=== PATIENT | male | born 1970 | race American Indian/Alaskan Native ===

== ENCOUNTER 2016-08-31 19:19 | Emergency (ER) | payer OTHER ==
[2016-08-31 19:24] VITALS: BMI 34.8
[2016-08-31] MEDS ORDERED: Sodium Chloride 0.9% 1,000 ML IV STA (19:43)
[2016-08-31] MEDS ORDERED: Piperacill/Tazo 4.5gm in NS 4.5 GM/100 ML BAG IVPB STA (19:43)
--- NOTE | 2016-08-31 19:45 | ED PDOC ---
Arrival/HPI - General Chief Complaint: Fever Time Seen by Provider: 08/31/16 19:41 - History of Present Illness Narrative History of Present Illness (Text): 46 y/o M c PMHx HTN, HLD, DM p/w toothache and fever since last night. Patient states he began having pain of the upper, R lateral incisor last night and also noticed subjective fever. Pain is sharp, constant, moderate in severity, nonradiating. Denies cough, sore throat, neck stiffness, chest pain, cough, dyspnea, abdominal pain, vomiting, diarrhea, dysuria, rash. Past Medical History - Infectious Disease Hx of Infectious Diseases: None - Cardiac Hx Cardiac Disorders: Yes Hx Hypertension: Yes - Pulmonary Hx Respiratory Disorders: No - Neurological Hx Neurological Disorder: No - HEENT Hx HEENT Disorder: No - Renal Hx Renal Disorder: No - Endocrine/Metabolic Hx Endocrine Disorders: Yes Hx Diabetes Mellitus Type 2: Yes - Hematological/Oncological Hx Blood Disorders: No - Integumentary Hx Dermatological Disorder: No - Musculoskeletal/Rheumatological Hx Musculoskeletal Disorders: No - Gastrointestinal Hx Gastrointestinal Disorders: No - Genitourinary/Gynecological Hx Genitourinary Disorders: No - Psychiatric Hx Psychophysiologic Disorder: No Hx Substance Use: No - Anesthesia Hx Anesthesia: No Family/Social History Family/Social History: No Known Family HX Smoking Status: Never Smoked Hx Alcohol Use: No Hx Substance Use: No Allergies/Home Meds Allergies/Adverse Reactions: Allergies No Known Allergies Allergy (Verified 08/31/16 19:23) Home Medications: Home Meds Medication Instructions Recorded Confirmed Aspirin [Adult Low Dose Aspirin EC] 1 tab PO DAILY 08/31/16 08/31/16 Atorvastatin [Lipitor] 1 tab PO HS 08/31/16 08/31/16 Ergocalciferol (Vitamin D2) 1 tab PO QWK 08/31/16 08/31/16 [Vitamin D] Folic Acid/Multivit-Min/Lutein 1 tab PO DAILY 08/31/16 08/31/16 [Adult Multivitamin Gummies] Hydrochlorothiazide [Microzide] 1 tab PO DAILY 08/31/16 08/31/16 Lisinopril [Zestril] 1 tab PO DAILY 08/31/16 08/31/16 MetFORMIN [glucoPHAGE] 1 tab PO DAILY 08/31/16 08/31/16 Review of Systems - Physician Review All systems were reviewed & negative as marked: Yes - Review of Systems Constitutional: Fevers Respiratory: absent: SOB Cardiovascular: absent: Chest Pain Physical Exam - Physical Exam Narrative Physical Exam (Text): Constitutional: No acute distress. Head: Normocephalic. Atraumatic. Eyes: PERRL. ENT: Erythema of gingiva around tooth 7. No obvious edema or abscess. Moist mucous membranes. Neck: Supple. Cardiovascular: Tachycardic. Chest: No tenderness. Respiratory: Clear to auscultation bilaterally. GI: Soft. Nontender. Nondistended. Back: No CVA tenderness. Musculoskeletal: No tenderness or swelling of extremities. Skin: No rash. Neurologic: Alert, no focal deficit. Vital Signs Temp Pulse Resp BP Pulse Ox 08/31/16 22:06 100.4 F H 105 H 22 144/99 H 97 08/31/16 19:58 102.5 F H 08/31/16 19:24 102 F H 133 H 20 164/107 H 95 Medical Decision Making ED Course and Treatment: Patient with infected tooth and no other obvious sources of infection presenting with tachycardia and fever. Will screen for sepsis and check UA and CXR for other sources. Administer initial dose Zosyn and IVF. Sinus rhythm, 135 bpm, no ST/T wave changes. CXR no acute disease. Lactic acid negative. Vitals improved, patient feels better. Will discharge home , follow up dental and PMD, counseled on diabetes management. Return to ER for worsening fever, pain, dyspnea, vomiting, or any other problem. - Lab Interpretations Lab Results: 08/31/16 19:50 08/31/16 19:50 Lab Results 08/31/16 21:20: Urine Color Yellow, Urine Appearance Clear, Urine pH 6.5, Ur Specific [place] 1.020, Urine Protein Trace H, Urine Glucose (UA) >=1000, Urine Ketones Trace H, Urine Blood Negative, Urine Nitrate Negative, Urine Bilirubin Negative, Urine Urobilinogen 4.0 H, Ur Leukocyte Esterase Negative, Urine RBC 0 - 2, Urine WBC 0 - 2, Ur Epithelial Cells 0 - 2, Urine Bacteria Neg 08/31/16 19:50: Sodium 134, Chloride 99, Potassium 4.0, Carbon Dioxide 25, Anion Gap 14, BUN 7, Creatinine 0.7, Est GFR ( Amer) > 60, Est GFR (Non- Af Amer) > 60, Random Glucose 281 H, Calcium 9.6, Phosphorus 2.8, Magnesium 1.5 L, Total Bilirubin 0.8, AST 27, ALT 37, Alkaline Phosphatase 54, Total Protein 8.5 H, Albumin 4.2, Globulin 4.3, Albumin/Globulin Ratio 1.0 L 08/31/16 19:50: pO2 139 H, VBG pH 7.45 H, VBG pCO2 36.0 L, VBG HCO3 25.0, VBG Total CO2 26.1, VBG O2 Sat (Calc) 98.9 H, VBG Base Excess 1.3, VBG Potassium 4.1 , Sodium 134.0, Chloride 100.0, Glucose 288 H, Lactate 1.4, FiO2 21.0, Venous Blood Potassium 4.1 08/31/16 19:50: PT 11.5, INR 1.06, APTT 25.9 08/31/16 19:50: WBC 11.8 H, RBC 4.90, Hgb 15.6, Hct 42.1, MCV 85.9, MCH 31.8, MCHC 37.1 H, RDW 12.2, Plt Count 257, MPV 9.5, Gran % 79.6 H, Lymph % (Auto) 13.8 L, [place] % (Auto) 6.2 H, Eos % (Auto) 0.1 L, Baso % (Auto) 0.3, Gran # 9.41 H, Lymph # 1.6, [place] # 0.7 H, Eos # 0.0, Baso # 0.04 - RAD Interpretation Radiology Orders: 08/31/16 19:41 CHEST PORTABLE [RAD] Stat - Medication Orders Current Medication Orders: Acetaminophen (Tylenol 325mg Tab) 975 mg PO ONCE PRN PRN Reason: Fever >100.4 F Last Admin: 08/31/16 19:58 Dose: 975 mg Discontinued Medications Sodium Chloride (Sodium Chloride 0.9%) 1,000 mls @ 999 mls/hr IV .Q1H1M STA Stop: 08/31/16 20:43 Last Admin: 08/31/16 19:59 Dose: 999 mls/hr Piperacillin Sod/Tazobactam Sod (Zosyn 4.5 Gm In Ns 100ml) 4.5 gm in 100 mls @ 200 mls/hr IVPB STAT STA PRN Reason: Protocol Stop: 08/31/16 20:12 Last Admin: 08/31/16 19:58 Dose: 200 mls/hr Disposition/Present on Arrival - Present on Arrival Any Indicators Present on Arrival: No History of DVT/PE: No History of Uncontrolled Diabetes: No Urinary Catheter: No History of Decub. Ulcer: No History Surgical Site Infection Following: None - Disposition Have Diagnosis and Disposition been Completed?: Yes Diagnosis: Pain, dental Disposition: HOME/ ROUTINE Disposition Time: 22:12 Patient Plan: Discharge Condition: STABLE Discharge Instructions (ExitCare): Toothache (ED) Prescriptions: Acetaminophen [Tylenol 325mg tab] 2 tab PO Q4H #30 tab Amoxicillin/Clavulanate [Augmentin 875 MG-125 MG] 1 tab PO BID #20 tab Referrals: PCP,NO [Primary Care Provider] - Follow up with primary
[2016-08-31 20:03] LABS: VENOUS BLOOD GAS BASE EXCESS 1.3 mmol/L (0.0-2.0); VENOUS BLOOD GAS PO2 139 mm/Hg (30-55); VENOUS BLOOD PH 7.45 (7.32-7.43)
[2016-08-31 20:14] LABS: ALBUMIN 4.2 g/dL (3.0-4.8); ALT/SGPT 37 U/L (7-56); AST/SGOT 27 U/L (15-59); BLOOD UREA NITROGEN 7 mg/dL (7-21); CALCIUM 9.6 mg/dL (8.4-10.5); GFR AFRICAN-AMERICAN > 60; GFR NON-AFRICAN AMERICAN > 60; MAGNESIUM 1.5 mg/dL (1.7-2.2)
[2016-08-31 20:17] LABS: INR 1.06 (0.93-1.08); PARTIAL THROMBOPLASTIN TIME 25.9 Seconds (23.7-30.8); PROTHROMBIN TIME 11.5 Seconds (9.9-11.8)
[2016-08-31 20:18] LABS: BASO # 0.04 K/mm3 (0.0-2.0); BASO % 0.3 % (0.0-3.0); EOS % 0.1 % (1.5-5.0); GRAN # 9.41 (1.4-6.5); GRAN % 79.6 % (50.0-68.0); HEMOGLOBIN 15.6 gm/dL (14.0-18.0); LYMPH # 1.6 (1.2-3.4); LYMPH % 13.8 % (22.0-35.0); MEAN CELL VOLUME 85.9 fL (80.0-105.0); MEAN CORPUSCULAR HEMOGLOBIN 31.8 pg (25.0-35.0); MEAN CORPUSCULAR HGB CONC 37.1 g/dl (31.0-37.0); MEAN PLATELET VOLUME 9.5 fl (7.0-11.0); MONO # 0.7 (0.1-0.6); MONO % 6.2 % (1.0-6.0); PLATELET COUNT 257 10^3/uL (120.0-450.0); RED CELL DISTRIBUTION WIDTH 12.2 % (11.5-14.5); WHITE BLOOD COUNT 11.8 10^3/ul (4.5-11.0)
[2016-08-31 21:43] LABS: PH,URINE 6.5 (4.7-8.0); URINE BILIRUBIN NEGATIVE (NEGATIVE); URINE BLOOD NEGATIVE (NEGATIVE); URINE GLUCOSE (UA) >=1000 mg/dL (NEGATIVE); URINE LEUKOCYTE ESTERASE NEGATIVE Leu/uL (NEGATIVE); URINE NITRATE NEGATIVE (NEGATIVE); URINE PROTEIN TRACE mg/dL (<30 mg/dL)
[2016-08-31 21:44] LABS: URINE APPEARANCE CLEAR (CLEAR); URINE COLOR YELLOW (YELLOW)
[2016-08-31 22:07] VITALS: BP 144/99; PULSE 105; RESP 22; TEMP 100.4; O2SAT 97
[2016-08-31 22:08] LABS: URINE EPITHELIAL CELLS 0 - 2 /hpf (0-5); URINE RBC 0 - 2 /hpf (0-2); URINE WBC 0 - 2 /hpf (0-6)
[2016-08-31 22:09] LABS: URINE BACTERIA NEG (NEG)
--- NOTE | 2016-09-01 07:29 | RAD ---
HISTORY: Fever COMPARISON: No prior. FINDINGS: LUNGS: The lungs are well inflated and clear. PLEURA: No significant pleural effusion identified, no pneumothorax apparent. CARDIOVASCULAR: Normal. OSSEOUS STRUCTURES: No significant abnormalities. VISUALIZED UPPER ABDOMEN: Normal. OTHER FINDINGS: None. IMPRESSION: No active pulmonary disease.
--- NOTE | 2016-09-01 16:18 | CARD ---
APPROVED REPORT EKG Measurement Heart [id number] <Conclusion> Sinus tachycardia Possible Left atrial enlargement Borderline ECG
== END 2016-08-31 22:40 | disposition home or self-care (01) ==
LOC: EDBD → ED 19:19
DX: K08.89 Other specified disorders of teeth and supporting structures (principal)
CPT/HCPCS: 71010; 80053; 81001; 82803; 83735; 84100; 85025; 85610; 85730; 87040; 87086; 93005; 96365; 99284; J2543; J7040